=== PATIENT | male | born 1945 | race Caucasian/White ===

== ENCOUNTER 2019-07-13 08:13 | Inpatient (IN) ==
[2019-07-13] MEDS ORDERED: 0.9 % Sodium Chloride 1,000 ML IVC ONE (08:36)
[2019-07-13] MEDS ORDERED: methylPREDNISolone 125 MG/2 ML VIAL IVP ONE (08:36)
[2019-07-13 08:51] LABS: Basophils % 0.4 %; Eosinophils # 0.1 K/mcL (0.0-0.6); Eosinophils % 0.9 %; Hematocrit 34.7 % (37.5-50.1); Hemoglobin 10.8 g/dL (12.9-16.9); Immature Granulocytes % 0.4 % (0-4); Lymphocytes % 10.6 %; Mean Corpuscular HGB Conc 31.1 g/dL (31.6-35.5); Mean Corpuscular Hemoglobin 28.7 pg (28.0-33.3); Mean Corpuscular Volume 92.3 fL (83.0-100.0); Mean Platelet Volume 8.9 fL (9.4-12.4); Monocytes # 1.1 K/mcL (0.0-1.3); Monocytes % 11.6 %; Neutrophils # 6.9 K/mcL (1.6-8.9); Platelet Count 339 K/mcL (140-400); Red Blood Count 3.76 M/mcL (4.19-5.50); Red Cell Distribution Width 15.4 % (11.5-14.5); Segmented Neutrophils % 76.1 %
[2019-07-13 08:52] LABS: INR 1.2; Prothrombin Time 13.8 Seconds (9.4-12.1)
[2019-07-13 09:00] LABS: VBG HCO3 28 mEq/L (21-27); VBG PCO2 50 mmHg (41-51); VBG PH 7.37 pH Units (7.32-7.42); VBG PO2 88 mmHg (25-50)
[2019-07-13 09:02] LABS: Troponin I < 0.03 ng/mL (< 0.04)
[2019-07-13 09:03] LABS: Alanine Aminotransferase 7 Units/L (7-52); Albumin 3.5 g/dL (3.5-5.7); Albumin/Globulin Ratio 1.2 (1.1-2.2); Alkaline Phosphatase 112 Units/L (34-104); Aspartate Amino Transferase 9 Units/L (13-39); BUN/Creatinine Ratio 16 (6-26); Bilirubin,Direct 0.1 mg/dL (0.0-0.2); Bilirubin,Indirect 0.2 mg/dL (0.0-1.0); Bilirubin,Total 0.3 mg/dL (0.3-1.0); Blood Urea Nitrogen 13 mg/dL (8-23); Calcium 9.4 mg/dL (8.6-10.3); Carbon Dioxide 29 mEq/L (23-29); Chloride 98 mEq/L (98-107); Glucose 159 mg/dL (70-105); Osmolality,Calculated 279 (280-300); Potassium 3.8 mEq/L (3.5-5.1); Sodium 133 mEq/L (136-145); Total Protein 6.5 g/dL (6.4-8.9); eGFR For African Americans > 60 (> 60); eGFR For Non-African Americans > 60 (> 60)
[2019-07-13] MEDS ORDERED: levoFLOXacin 750 MG/150 ML 750 MG/150 ML BAG IVPB ONE (09:49)
[2019-07-13] MEDS ORDERED: Gabapentin 300 MG CAPSULE PO PRN (11:25)
[2019-07-13] MEDS ORDERED: Naloxone 0.4 MG/ML INJ IVP PRN (11:25)
[2019-07-13] MEDS ORDERED: Ipratropium/Albuterol Neb 3 ML IH PRN (11:25)
[2019-07-13] MEDS: *HR* Metformin 500 MG TABLET PO SCH (17:00)
[2019-07-13] MEDS: MetroNIDAZOLE 500 MG/100 ML 500 MG/100 ML BAG IVPB SCH (17:00)
[2019-07-13] MEDS: Albuterol 2.5 MG/3 ML NEBULIZER IH SCH ×3 (17:31→23:53)
[2019-07-13] MEDS: Latanoprost 2.5 ML BOTTLE BOTH EYES SCH (19:59)
[2019-07-13] MEDS: Budesonide/Formoterol 80/4.5 1 PUFF INH IH SCH (20:16)
[2019-07-13] MEDS: *HR* OxyCODONE Immed Rel 5 MG TABLET PO PRN (23:56)
[2019-07-14] MEDS: MetroNIDAZOLE 500 MG/100 ML 500 MG/100 ML BAG IVPB SCH ×2 (00:01→08:38)
[2019-07-14] MEDS: Albuterol 2.5 MG/3 ML NEBULIZER IH SCH ×6 (04:20→23:34)
[2019-07-14] MEDS: *HR* OxyCODONE Immed Rel 5 MG TABLET PO PRN ×2 (06:05→20:19)
[2019-07-14] MEDS: Budesonide/Formoterol 80/4.5 1 PUFF INH IH SCH ×2 (07:15→18:48)
[2019-07-14] MEDS: *HR* Metformin 500 MG TABLET PO SCH ×2 (08:38→16:57)
[2019-07-14] MEDS: Multivit/Ca/Min/Fe/FA 1 TAB TABLET PO SCH (08:38)
[2019-07-14] MEDS: Cholecalciferol (D-3) 1,000 UNIT (25MCG) TABLET PO SCH (08:38)
[2019-07-14] MEDS: predniSONE 20 MG TABLET PO SCH (08:38)
[2019-07-14] MEDS: Aspirin Enteric Coated 81 MG Tablet PO SCH (08:38)
[2019-07-14] MEDS ORDERED: *HR* Rivaroxaban 15 MG TABLET PO SCH (09:00)
[2019-07-14] MEDS ORDERED: levoFLOXacin 750 MG/150 ML 750 MG/150 ML BAG IVPB SCH (09:00)
[2019-07-14 10:17] LABS: Basophils % 0.2 %; Eosinophils % 0.1 %; Hematocrit 31.7 % (37.5-50.1); Hemoglobin 9.8 g/dL (12.9-16.9); Lymphocytes # 0.6 K/mcL (0.6-4.6); Lymphocytes % 7.6 %; Mean Corpuscular HGB Conc 30.9 g/dL (31.6-35.5); Mean Corpuscular Volume 93.8 fL (83.0-100.0); Mean Platelet Volume 8.9 fL (9.4-12.4); Monocytes # 1.1 K/mcL (0.0-1.3); Monocytes % 13.1 %; Neutrophils # 6.5 K/mcL (1.6-8.9); Platelet Count 347 K/mcL (140-400); Red Blood Count 3.38 M/mcL (4.19-5.50); Red Cell Distribution Width 15.4 % (11.5-14.5); White Blood Count 8.3 K/mcL (4.3-11.1)
[2019-07-14] MEDS: Tiotropium 18 MCG inhalation IH SCH (10:58)
[2019-07-14 11:15] LABS: BUN/Creatinine Ratio 14 (6-26); Blood Urea Nitrogen 11 mg/dL (8-23); Calcium 9.5 mg/dL (8.6-10.3); Carbon Dioxide 30 mEq/L (23-29); Chloride 103 mEq/L (98-107); Glucose 120 mg/dL (70-105); Osmolality,Calculated 293 (280-300); Potassium 3.7 mEq/L (3.5-5.1); Sodium 141 mEq/L (136-145); eGFR For African Americans > 60 (> 60); eGFR For Non-African Americans > 60 (> 60)
[2019-07-14] MEDS ORDERED: levoFLOXacin 750 MG TABLET PO SCH (11:30)
[2019-07-14 13:46] LABS: % Iron Saturation 21 % (20-55); Iron 47 mcg/dL (65-175); Transferrin 158 mg/dL (203-362)
[2019-07-14 13:56] LABS: Folate 9.8 ng/mL (3.0-16.0)
[2019-07-14] MEDS: metroNIDAZOLE 500 MG TABLET PO SCH ×2 (16:57→20:11)
[2019-07-14] MEDS: Latanoprost 2.5 ML BOTTLE BOTH EYES SCH (20:12)
[2019-07-15] MEDS: Albuterol 2.5 MG/3 ML NEBULIZER IH PRN (00:06)
[2019-07-15] MEDS: *HR* OxyCODONE Immed Rel 5 MG TABLET PO PRN ×3 (04:05→20:24)
[2019-07-15] MEDS: Albuterol 2.5 MG/3 ML NEBULIZER IH SCH ×5 (04:05→20:17)
[2019-07-15] MEDS: Budesonide/Formoterol 80/4.5 1 PUFF INH IH SCH ×2 (07:34→20:27)
[2019-07-15] MEDS: Tiotropium 18 MCG inhalation IH SCH (07:34)
[2019-07-15] MEDS: *HR* Metformin 500 MG TABLET PO SCH ×2 (08:23→16:02)
[2019-07-15] MEDS: Multivit/Ca/Min/Fe/FA 1 TAB TABLET PO SCH (08:23)
[2019-07-15] MEDS: *HR* Rivaroxaban 10 MG TABLET PO SCH (08:23)
[2019-07-15] MEDS: Aspirin Enteric Coated 81 MG Tablet PO SCH (08:23)
[2019-07-15] MEDS: predniSONE 20 MG TABLET PO SCH (08:23)
[2019-07-15] MEDS: Cholecalciferol (D-3) 1,000 UNIT (25MCG) TABLET PO SCH (08:24)
[2019-07-15] MEDS: levoFLOXacin 750 MG/150 ML 750 MG/150 ML BAG IVPB SCH (08:24)
[2019-07-15] MEDS: MetroNIDAZOLE 500 MG/100 ML 500 MG/100 ML BAG IVPB SCH ×3 (08:24→20:25)
[2019-07-15] MEDS ORDERED: hydrOXYzine pamoate 25 MG CAPSULE PO PRN (12:07)
[2019-07-15 12:10] LABS: Alanine Aminotransferase 8 Units/L (7-52); Albumin 3.6 g/dL (3.5-5.7); Albumin/Globulin Ratio 1.2 (1.1-2.2); Alkaline Phosphatase 93 Units/L (34-104); Aspartate Amino Transferase 10 Units/L (13-39); BUN/Creatinine Ratio 17 (6-26); Bilirubin,Total 0.2 mg/dL (0.3-1.0); Blood Urea Nitrogen 15 mg/dL (8-23); Calcium 10.1 mg/dL (8.6-10.3); Carbon Dioxide 27 mEq/L (23-29); Chloride 103 mEq/L (98-107); Globulin 2.9 g/dL (2.4-3.5); Glucose 177 mg/dL (70-105); Magnesium 1.3 mg/dL (1.6-2.6); Osmolality,Calculated 297 (280-300); Potassium 4.4 mEq/L (3.5-5.1); Sodium 141 mEq/L (136-145); Total Protein 6.5 g/dL (6.4-8.9); eGFR For African Americans > 60 (> 60); eGFR For Non-African Americans > 60 (> 60)
[2019-07-15] MEDS ORDERED: Isovue-370 500 ML BOTTLE IVP ONE (12:22)
[2019-07-15 13:22] LABS: Basophils % 0.1 %; Hematocrit 31.4 % (37.5-50.1); Hemoglobin 9.6 g/dL (12.9-16.9); Immature Granulocytes % 0.5 % (0-4); Lymphocytes # 0.5 K/mcL (0.6-4.6); Lymphocytes % 5.2 %; Mean Corpuscular HGB Conc 30.6 g/dL (31.6-35.5); Mean Corpuscular Hemoglobin 28.8 pg (28.0-33.3); Mean Corpuscular Volume 94.3 fL (83.0-100.0); Mean Platelet Volume 8.7 fL (9.4-12.4); Monocytes # 0.5 K/mcL (0.0-1.3); Monocytes % 5.2 %; Neutrophils # 7.8 K/mcL (1.6-8.9); Platelet Count 346 K/mcL (140-400); Red Blood Count 3.33 M/mcL (4.19-5.50); Red Cell Distribution Width 15.7 % (11.5-14.5); White Blood Count 8.7 K/mcL (4.3-11.1)
[2019-07-15] MEDS: Latanoprost 2.5 ML BOTTLE BOTH EYES SCH (20:28)
[2019-07-16] MEDS: Albuterol 2.5 MG/3 ML NEBULIZER IH SCH ×8 (00:06→21:20)
[2019-07-16] MEDS: Albuterol 2.5 MG/3 ML NEBULIZER IH PRN (03:11)
[2019-07-16] MEDS: hydrOXYzine pamoate 25 MG CAPSULE PO PRN ×2 (03:31→21:20)
[2019-07-16] MEDS: *HR* OxyCODONE Immed Rel 5 MG TABLET PO PRN ×3 (05:28→23:35)
[2019-07-16] MEDS: Budesonide/Formoterol 80/4.5 1 PUFF INH IH SCH ×2 (07:35→20:04)
[2019-07-16] MEDS: Tiotropium 18 MCG inhalation IH SCH (07:36)
[2019-07-16] MEDS: Cholecalciferol (D-3) 1,000 UNIT (25MCG) TABLET PO SCH (08:36)
[2019-07-16] MEDS: *HR* Rivaroxaban 10 MG TABLET PO SCH (08:36)
[2019-07-16] MEDS: Multivit/Ca/Min/Fe/FA 1 TAB TABLET PO SCH (08:36)
[2019-07-16] MEDS: Aspirin Enteric Coated 81 MG Tablet PO SCH (08:36)
[2019-07-16] MEDS: Magnesium Oxide 400 MG TABLET PO SCH (08:37)
[2019-07-16] MEDS: predniSONE 20 MG TABLET PO SCH (08:37)
[2019-07-16] MEDS: *HR* Metformin 500 MG TABLET PO SCH ×2 (08:37→17:11)
[2019-07-16] MEDS: levoFLOXacin 750 MG/150 ML 750 MG/150 ML BAG IVPB SCH (08:47)
[2019-07-16 10:32] LABS: Basophils % 0.3 %; Eosinophils % 0.4 %; Hematocrit 31.4 % (37.5-50.1); Hemoglobin 9.6 g/dL (12.9-16.9); Immature Granulocytes % 0.8 % (0-4); Lymphocytes # 0.6 K/mcL (0.6-4.6); Lymphocytes % 8.3 %; Mean Corpuscular HGB Conc 30.6 g/dL (31.6-35.5); Mean Corpuscular Hemoglobin 28.6 pg (28.0-33.3); Mean Corpuscular Volume 93.5 fL (83.0-100.0); Mean Platelet Volume 8.6 fL (9.4-12.4); Monocytes % 12.6 %; Neutrophils # 5.9 K/mcL (1.6-8.9); Platelet Count 323 K/mcL (140-400); Red Blood Count 3.36 M/mcL (4.19-5.50); Red Cell Distribution Width 15.8 % (11.5-14.5); Segmented Neutrophils % 77.6 %; White Blood Count 7.6 K/mcL (4.3-11.1)
[2019-07-16 10:46] LABS: Alanine Aminotransferase 8 Units/L (7-52); Albumin 3.2 g/dL (3.5-5.7); Albumin/Globulin Ratio 1.3 (1.1-2.2); Alkaline Phosphatase 78 Units/L (34-104); Aspartate Amino Transferase 8 Units/L (13-39); BUN/Creatinine Ratio 18 (6-26); Bilirubin,Total 0.2 mg/dL (0.3-1.0); Blood Urea Nitrogen 14 mg/dL (8-23); Calcium 9.6 mg/dL (8.6-10.3); Carbon Dioxide 31 mEq/L (23-29); Chloride 105 mEq/L (98-107); Globulin 2.4 g/dL (2.4-3.5); Glucose 191 mg/dL (70-105); Magnesium 1.2 mg/dL (1.6-2.6); Osmolality,Calculated 298 (280-300); Potassium 3.6 mEq/L (3.5-5.1); Sodium 141 mEq/L (136-145); Total Protein 5.6 g/dL (6.4-8.9); eGFR For African Americans > 60 (> 60); eGFR For Non-African Americans > 60 (> 60)
[2019-07-16] MEDS: MetroNIDAZOLE 500 MG/100 ML 500 MG/100 ML BAG IVPB SCH ×3 (11:50→21:20)
[2019-07-16] MEDS: Latanoprost 2.5 ML BOTTLE BOTH EYES SCH (21:21)
[2019-07-16] MEDS ORDERED: Levalbuterol Neb 1.25 MG/3 ML ONE (21:41)
[2019-07-16] MEDS: Melatonin 3 MG TABLET PO PRN (23:35)
[2019-07-17] MEDS: Albuterol 2.5 MG/3 ML NEBULIZER IH SCH ×6 (04:10→23:00)
[2019-07-17] MEDS: Albuterol 2.5 MG/3 ML NEBULIZER IH PRN (04:51)
[2019-07-17] MEDS: *HR* OxyCODONE Immed Rel 5 MG TABLET PO PRN ×3 (06:00→21:48)
[2019-07-17 06:16] LABS: Alanine Aminotransferase 8 Units/L (7-52); Albumin 3.2 g/dL (3.5-5.7); Albumin/Globulin Ratio 1.4 (1.1-2.2); Alkaline Phosphatase 73 Units/L (34-104); Aspartate Amino Transferase 9 Units/L (13-39); BUN/Creatinine Ratio 17 (6-26); Bilirubin,Total 0.3 mg/dL (0.3-1.0); Blood Urea Nitrogen 13 mg/dL (8-23); Calcium 9.7 mg/dL (8.6-10.3); Carbon Dioxide 33 mEq/L (23-29); Chloride 102 mEq/L (98-107); Globulin 2.3 g/dL (2.4-3.5); Glucose 101 mg/dL (70-105); Magnesium 1.2 mg/dL (1.6-2.6); Osmolality,Calculated 290 (280-300); Potassium 4.2 mEq/L (3.5-5.1); Sodium 140 mEq/L (136-145); Total Protein 5.5 g/dL (6.4-8.9); eGFR For African Americans > 60 (> 60); eGFR For Non-African Americans > 60 (> 60)
[2019-07-17] MEDS: Budesonide/Formoterol 80/4.5 1 PUFF INH IH SCH ×2 (07:16→19:38)
[2019-07-17] MEDS: Tiotropium 18 MCG inhalation IH SCH (07:16)
[2019-07-17] MEDS: Cholecalciferol (D-3) 1,000 UNIT (25MCG) TABLET PO SCH (08:59)
[2019-07-17] MEDS: Aspirin Enteric Coated 81 MG Tablet PO SCH (08:59)
[2019-07-17] MEDS: Multivit/Ca/Min/Fe/FA 1 TAB TABLET PO SCH (08:59)
[2019-07-17] MEDS: *HR* Metformin 500 MG TABLET PO SCH ×2 (08:59→16:51)
[2019-07-17] MEDS: Magnesium Oxide 400 MG TABLET PO SCH ×2 (08:59→21:48)
[2019-07-17] MEDS: *HR* Rivaroxaban 10 MG TABLET PO SCH (08:59)
[2019-07-17] MEDS: predniSONE 20 MG TABLET PO SCH (08:59)
[2019-07-17] MEDS: levoFLOXacin 750 MG/150 ML 750 MG/150 ML BAG IVPB SCH (09:03)
[2019-07-17] MEDS: MetroNIDAZOLE 500 MG/100 ML 500 MG/100 ML BAG IVPB SCH ×3 (10:45→21:50)
[2019-07-17] MEDS: Latanoprost 2.5 ML BOTTLE BOTH EYES SCH (21:50)
[2019-07-18] MEDS: hydrOXYzine pamoate 25 MG CAPSULE PO PRN (01:44)
[2019-07-18] MEDS: Albuterol 2.5 MG/3 ML NEBULIZER IH SCH ×6 (03:54→20:37)
[2019-07-18] MEDS: *HR* OxyCODONE Immed Rel 5 MG TABLET PO PRN ×3 (04:06→19:45)
[2019-07-18] MEDS: Magnesium Oxide 400 MG TABLET PO SCH ×2 (08:59→19:45)
[2019-07-18] MEDS: Cholecalciferol (D-3) 1,000 UNIT (25MCG) TABLET PO SCH (08:59)
[2019-07-18] MEDS: Multivit/Ca/Min/Fe/FA 1 TAB TABLET PO SCH (08:59)
[2019-07-18] MEDS: *HR* Rivaroxaban 10 MG TABLET PO SCH (08:59)
[2019-07-18] MEDS: predniSONE 20 MG TABLET PO SCH (08:59)
[2019-07-18] MEDS: Aspirin Enteric Coated 81 MG Tablet PO SCH (09:00)
[2019-07-18] MEDS: MetroNIDAZOLE 500 MG/100 ML 500 MG/100 ML BAG IVPB SCH ×3 (09:00→19:45)
[2019-07-18] MEDS: *HR* Metformin 500 MG TABLET PO SCH ×2 (09:00→17:02)
[2019-07-18] MEDS: Tiotropium 18 MCG inhalation IH SCH (09:03)
[2019-07-18] MEDS: Budesonide/Formoterol 80/4.5 1 PUFF INH IH SCH ×2 (09:04→20:38)
[2019-07-18] MEDS: levoFLOXacin 750 MG/150 ML 750 MG/150 ML BAG IVPB SCH (10:33)
[2019-07-18 12:07] LABS: Basophils % 0.2 %; Eosinophils # 0.1 K/mcL (0.0-0.6); Eosinophils % 0.7 %; Hematocrit 33.5 % (37.5-50.1); Hemoglobin 10.5 g/dL (12.9-16.9); Immature Granulocytes % 0.6 % (0-4); Lymphocytes # 0.6 K/mcL (0.6-4.6); Lymphocytes % 5.7 %; Mean Corpuscular HGB Conc 31.3 g/dL (31.6-35.5); Mean Corpuscular Hemoglobin 29.2 pg (28.0-33.3); Mean Corpuscular Volume 93.1 fL (83.0-100.0); Mean Platelet Volume 8.8 fL (9.4-12.4); Monocytes % 9.8 %; Neutrophils # 8.5 K/mcL (1.6-8.9); Platelet Count 355 K/mcL (140-400); Red Cell Distribution Width 15.9 % (11.5-14.5); White Blood Count 10.3 K/mcL (4.3-11.1)
[2019-07-18 12:20] LABS: Alanine Aminotransferase 9 Units/L (7-52); Albumin 3.1 g/dL (3.5-5.7); Albumin/Globulin Ratio 1.3 (1.1-2.2); Alkaline Phosphatase 71 Units/L (34-104); Aspartate Amino Transferase 11 Units/L (13-39); BUN/Creatinine Ratio 20 (6-26); Bilirubin,Total 0.3 mg/dL (0.3-1.0); Blood Urea Nitrogen 17 mg/dL (8-23); Calcium 9.9 mg/dL (8.6-10.3); Carbon Dioxide 33 mEq/L (23-29); Chloride 101 mEq/L (98-107); Globulin 2.4 g/dL (2.4-3.5); Glucose 115 mg/dL (70-105); Osmolality,Calculated 290 (280-300); Potassium 4.1 mEq/L (3.5-5.1); Sodium 139 mEq/L (136-145); Total Protein 5.5 g/dL (6.4-8.9); eGFR For African Americans > 60 (> 60); eGFR For Non-African Americans > 60 (> 60)
[2019-07-18] MEDS: Melatonin 3 MG TABLET PO PRN (19:45)
[2019-07-18] MEDS: Latanoprost 2.5 ML BOTTLE BOTH EYES SCH (19:53)
[2019-07-19] MEDS: Albuterol 2.5 MG/3 ML NEBULIZER IH SCH ×6 (00:14→20:14)
[2019-07-19] MEDS: hydrOXYzine pamoate 25 MG CAPSULE PO PRN (01:20)
[2019-07-19 05:31] LABS: Basophils % 0.1 %; Eosinophils % 0.4 %; Hemoglobin 9.7 g/dL (12.9-16.9); Immature Granulocytes % 0.8 % (0-4); Lymphocytes # 0.9 K/mcL (0.6-4.6); Mean Corpuscular HGB Conc 31.3 g/dL (31.6-35.5); Mean Corpuscular Hemoglobin 28.8 pg (28.0-33.3); Mean Platelet Volume 8.9 fL (9.4-12.4); Monocytes # 0.8 K/mcL (0.0-1.3); Monocytes % 11.1 %; Neutrophils # 5.3 K/mcL (1.6-8.9); Platelet Count 358 K/mcL (140-400); Red Blood Count 3.37 M/mcL (4.19-5.50); Red Cell Distribution Width 15.9 % (11.5-14.5); Segmented Neutrophils % 74.6 %; White Blood Count 7.1 K/mcL (4.3-11.1)
[2019-07-19 05:46] LABS: Alanine Aminotransferase 9 Units/L (7-52); Albumin 3.1 g/dL (3.5-5.7); Albumin/Globulin Ratio 1.3 (1.1-2.2); Alkaline Phosphatase 67 Units/L (34-104); Aspartate Amino Transferase 11 Units/L (13-39); BUN/Creatinine Ratio 24 (6-26); Bilirubin,Total 0.3 mg/dL (0.3-1.0); Blood Urea Nitrogen 18 mg/dL (8-23); Calcium 9.3 mg/dL (8.6-10.3); Carbon Dioxide 30 mEq/L (23-29); Chloride 101 mEq/L (98-107); Globulin 2.3 g/dL (2.4-3.5); Glucose 114 mg/dL (70-105); Osmolality,Calculated 287 (280-300); Potassium 4.1 mEq/L (3.5-5.1); Sodium 137 mEq/L (136-145); Total Protein 5.4 g/dL (6.4-8.9); eGFR For African Americans > 60 (> 60); eGFR For Non-African Americans > 60 (> 60)
[2019-07-19] MEDS: Cholecalciferol (D-3) 1,000 UNIT (25MCG) TABLET PO SCH (07:58)
[2019-07-19] MEDS: Aspirin Enteric Coated 81 MG Tablet PO SCH (07:58)
[2019-07-19] MEDS: predniSONE 20 MG TABLET PO SCH (07:58)
[2019-07-19] MEDS: Magnesium Oxide 400 MG TABLET PO SCH ×2 (07:58→19:53)
[2019-07-19] MEDS: *HR* Metformin 500 MG TABLET PO SCH ×2 (07:59→16:14)
[2019-07-19] MEDS: Multivit/Ca/Min/Fe/FA 1 TAB TABLET PO SCH (07:59)
[2019-07-19] MEDS: *HR* Rivaroxaban 10 MG TABLET PO SCH (07:59)
[2019-07-19] MEDS: MetroNIDAZOLE 500 MG/100 ML 500 MG/100 ML BAG IVPB SCH ×3 (07:59→19:53)
[2019-07-19] MEDS: levoFLOXacin 750 MG/150 ML 750 MG/150 ML BAG IVPB SCH (09:44)
[2019-07-19] MEDS: Budesonide/Formoterol 80/4.5 1 PUFF INH IH SCH ×2 (11:20→20:15)
[2019-07-19] MEDS: Tiotropium 18 MCG inhalation IH SCH (11:22)
[2019-07-19] MEDS: *HR* OxyCODONE Immed Rel 5 MG TABLET PO PRN ×2 (12:23→19:53)
[2019-07-19] MEDS: Melatonin 3 MG TABLET PO PRN (19:53)
[2019-07-19] MEDS: Latanoprost 2.5 ML BOTTLE BOTH EYES SCH (19:53)
[2019-07-20] MEDS: Albuterol 2.5 MG/3 ML NEBULIZER IH SCH ×2 (00:19→03:54)
[2019-07-20 05:41] VITALS: BP 104/68
[2019-07-20] MEDS: *HR* OxyCODONE Immed Rel 5 MG TABLET PO PRN (06:36)
[2019-07-20] MEDS: hydrOXYzine pamoate 25 MG CAPSULE PO PRN (06:36)
== END 2019-07-20 06:40 ==
LOC: INPGRE 08:13 → EMEROOGRE 08:13 → INPGRE 11:05
PROVIDERS: ADMIT Family Medicine; ATTEND Family Medicine